=== PATIENT | female | born 1950 | race Caucasian/White ===

== ENCOUNTER 2019-01-12 19:50 | Emergency (ER) | payer MEDICARE ==
[~2019-01-12] VITALS: Ht 165.1 cm; Wt 75.0 kg
[2019-01-12] MEDS ORDERED: OMEP40CA37 PO (20:06)
[2019-01-12] MEDS ORDERED: PRED5TAB PO (20:06)
[2019-01-12] MEDS ORDERED: METO50TA7 PO (20:06)
[2019-01-12] MEDS ORDERED: LISI-600 PO (20:06)
[2019-01-12] MEDS ORDERED: ACYC-202 PO (20:06)
[2019-01-12 20:07] VITALS: BP 194/116
== END 2019-01-12 22:05 | disposition home or self-care (01) ==
LOC: ER 19:51
DX: T38.0X5A Adverse effect of glucocorticoids and synthetic analogues, initial encounter (principal); T37.5X5A Adverse effect of antiviral drugs, initial encounter; R07.89 Other chest pain; R06.02 Shortness of breath; Y92.89 Other specified places as the place of occurrence of the external cause; B02.9 Zoster without complications; I10 Essential (primary) hypertension; Z88.2 Allergy status to sulfonamides; Z88.0 Allergy status to penicillin; Z88.8 Allergy status to other drugs, medicaments and biological substances
CPT/HCPCS: 99281

== ENCOUNTER 2024-02-06 05:11 | Emergency (ER) | payer MEDICARE ==
[~2024-02-06] VITALS: Ht 165.1 cm; Wt 72.5 kg
[~2024-02-06 05:11] MED LIST: ACYC-129 PO; LISI20TA28 PO; METO50TA7 PO; OMEP40CA21 PO; PRED5TAB PO
[2024-02-06] MEDS ORDERED: LEVO-65 PO (06:27)
[2024-02-06 06:53] VITALS: BP 173/96; PULSE 75; RESP 16; TEMP 98; O2SAT 98
== END 2024-02-06 06:54 | disposition home or self-care (01) ==
LOC: ER 05:11
DX: H66.42 Suppurative otitis media, unspecified, left ear (principal); H72.92 Unspecified perforation of tympanic membrane, left ear; I10 Essential (primary) hypertension; Z88.0 Allergy status to penicillin; Z88.2 Allergy status to sulfonamides; Z88.8 Allergy status to other drugs, medicaments and biological substances
CPT/HCPCS: 99283

== ENCOUNTER 2024-08-30 14:08 | Inpatient (IN) | payer MEDICARE, OTHER ==
[~2024-08-30] VITALS: Ht 165.1 cm; Wt 79.5 kg
[2024-08-30] MEDS ORDERED: iohexol 350MG/ML 100ml bottle IV ONE (14:13)
[2024-08-30 14:40] LABS: BASOPHILS # (AUTO) 0.1 X10'3 (0-0.2); BASOPHILS % (AUTO) 0.6 % (0-1); EOSINOPHILS # (AUTO) 0.2 X10'3 (0-0.9); EOSINOPHILS % (AUTO) 1.9 % (0-6); HEMATOCRIT 41.4 % (35.0-45.0); HEMOGLOBIN 13.9 g/dl (12.0-16.0); LYMPHOCYTES # (AUTO) 2.8 X10'3 (1.1-4.8); LYMPHOCYTES % (AUTO) 24.1 % (21-51); MEAN CORPUSCULAR HEMOGLOBIN 29.2 PG (27.0-31.0); MEAN CORPUSCULAR HGB CONC 33.5 g/dL (33.0-36.5); MEAN CORPUSCULAR VOLUME 87.1 FL (78-98); MEAN PLATELET VOLUME 8.7 FL (7.4-10.4); MONOCYTES # (AUTO) 0.6 X10'3 (0-0.9); MONOCYTES % (AUTO) 5.3 % (2-12); NEUTROPHILS # (AUTO) 7.9 X10'3 (1.8-7.7); NEUTROPHILS % (AUTO) 68.1 % (42-75); PLATELET COUNT 235 X10'3 (140-440); RED BLOOD COUNT 4.76 X10'6 (4.20-5.60); RED CELL DISTRIBUTION WIDTH 14.2 % (11.5-14.5); WHITE BLOOD COUNT 11.5 X10'3 (4.5-11.0)
[2024-08-30 14:51] LABS: ANION GAP 11 (8-16); BLOOD UREA NITROGEN 26 MG/DL (7-18); BUN/CREATININE RATIO 29.5 (10.0-20.0); CALCIUM 9.2 MG/DL (8.5-10.1); CHLORIDE 106 MMOL/L (99-107); CREATININE 0.88 MG/DL (0.40-0.90); GLUCOSE 121 MG/DL (70-104); POTASSIUM 4.2 MMOL/L (3.5-5.1); SODIUM 140 MMOL/L (135-145); TOTAL CARBON DIOXIDE 22.8 MMOL/L (24-32); eCRCL 52 ML/MIN; eGFR 63 ML/MIN
[2024-08-30 14:56] LABS: APTT 28 SECONDS (22-32); PROTHROMBIN TIME 10.6 SECONDS (9.0-12.0)
[2024-08-30 15:24] LABS: URINE AMPHETAMINE SCREEN NEGATIVE (Neg); URINE BARBITUATE SCREEN NEGATIVE (Neg); URINE BENZODIAZEPINES SCREEN NEGATIVE (Neg); URINE CANNABINOID SCREEN NEGATIVE (Neg); URINE COCAINE SCREEN NEGATIVE (Neg); URINE METHADONE SCREEN NEGATIVE (Neg); URINE OPIATE SCREEN NEGATIVE (Neg); URINE PHENCYCLIDINE SCREEN NEGATIVE (Neg)
[2024-08-30 15:32] LABS: ALANINE AMINOTRANSFERASE 39 U/L (12-78); ALBUMIN/GLOBULIN RATIO 1.4 (1.1-1.5); ALKALINE PHOSPHATASE 138 IU/L (46-116); ASPARTATE AMINO TRANSFERASE 26 U/L (10-37); BILIRUBIN,DIRECT 0.1 MG/DL (0-0.3); BILIRUBIN,TOTAL 0.4 MG/DL (0.1-1.0); TOTAL PROTEIN 6.9 G/DL (6.4-8.2)
[2024-08-30 15:35] LABS: BILIRUBIN,URINE NEGATIVE (Neg); CLARITY,URINE CLEAR (Clear); COLOR,URINE YELLOW (Yellow); GLUCOSE, URINE NEGATIVE (Neg); KETONES,URINE NEGATIVE (Neg); LEUKOCYTE ESTERASE ,URINE NEGATIVE (Neg); NITRITES, URINE NEGATIVE (Neg); OCCULT BLOOD,URINE NEGATIVE (Neg); PH,URINE 5.5 (4.8-8.0); PROTEIN,URINE NEGATIVE (Neg); UROBILINOGEN,URINE 0.2 E.U/dL (0.2-1.0)
[2024-08-30 15:40] LABS: UA COLLECTION TYPE CLN CATCH MIDSTREAM
[2024-08-30] MEDS ORDERED: ondansetron/PF 4mg/2ml inj IV PRN (17:30)
[2024-08-30] MEDS ORDERED: mag hydrox/Alum hydrox/simeth 30ml oral suspension PO PRN (17:30)
[2024-08-30] MEDS ORDERED: morphine 2 MG/ML inj. syringe IV PRN ×2 (17:30)
[2024-08-30] MEDS ORDERED: magnesium Cl slow-release 64mg tablet PO PRN (17:30)
[2024-08-30] MEDS ORDERED: potassium Cl 40MEQ/1/2NS 520ml 520 ML IV PRN (17:30)
[2024-08-30] MEDS ORDERED: acetaminophen 325mg tablet PO PRN (17:30)
[2024-08-30] MEDS ORDERED: potassium Cl 20 mEq SR tablet PO PRN ×2 (17:30)
[2024-08-30] MEDS ORDERED: magnesium sulf-water 4G/100mL 100 ML IV PRN (17:30)
[2024-08-30] MEDS ORDERED: magnesium sulf-water 2g/50mL 50 ML IV PRN (17:30)
[2024-08-30] MEDS ORDERED: hydrALAZINE 20mg/ml inj. IV PRN (18:50)
[2024-08-30] MEDS: normal saline 1000ml 1,000 ML IV SCH (19:31)
[2024-08-30 19:34] LABS: CHOL/HDL RATIO 4.7 (0.00-4.99); CHOLESTEROL 232 MG/DL (0-200); HDL CHOLESTEROL 49 MG/DL (35-60); LDL CHOLESTEROL 147 MG/DL (50-100); TRIGLYCERIDES 231 MG/DL (20-135)
[2024-08-30] MEDS ORDERED: GADOTERATE MEGLUMINE 7.5 MMOL/15 ML VIAL IV ONE (19:34)
[2024-08-30 19:36] LABS: HEMOGLOBIN A1C 6.1 % (4.5-6.2)
[2024-08-30] MEDS: docusate sod 100mg capsule PO SCH (20:00)
[2024-08-30] MEDS: K and/or MAG REPLACEMENT MC SCH (20:00)
[2024-08-30] MEDS: methylPREDNISolone sod succ 125mg/2ml vial IV SCH (20:06)
[2024-08-30 20:37] LABS: OCCULT BLOOD STOOL NEGATIVE (Neg)
[2024-08-31] VITALS (8 sets, daily range): BP systolic 155–188; BP diastolic 74–94; PULSE 72–92; RESP 16–20; TEMP 97.7–98.5; O2SAT 94–97
[2024-08-31] MEDS ORDERED: CELE-193 PO (00:58)
[2024-08-31] MEDS ORDERED: FLUT9.9S BOTHNARES (02:26)
[2024-08-31 06:45] LABS: BASOPHILS % (AUTO) 0.3 % (0-1); EOSINOPHILS % (AUTO) 0 % (0-6); HEMATOCRIT 41.4 % (35.0-45.0); HEMOGLOBIN 13.9 g/dl (12.0-16.0); LYMPHOCYTES # (AUTO) 1.5 X10'3 (1.1-4.8); LYMPHOCYTES % (AUTO) 13.5 % (21-51); MEAN CORPUSCULAR HEMOGLOBIN 29.4 PG (27.0-31.0); MEAN CORPUSCULAR HGB CONC 33.7 g/dL (33.0-36.5); MEAN CORPUSCULAR VOLUME 87.4 FL (78-98); MEAN PLATELET VOLUME 8.9 FL (7.4-10.4); MONOCYTES # (AUTO) 0.2 X10'3 (0-0.9); MONOCYTES % (AUTO) 1.9 % (2-12); NEUTROPHILS # (AUTO) 9.3 X10'3 (1.8-7.7); NEUTROPHILS % (AUTO) 84.3 % (42-75); PLATELET COUNT 249 X10'3 (140-440); RED BLOOD COUNT 4.73 X10'6 (4.20-5.60); RED CELL DISTRIBUTION WIDTH 14.2 % (11.5-14.5); WHITE BLOOD COUNT 11.1 X10'3 (4.5-11.0)
[2024-08-31 07:08] LABS: ALANINE AMINOTRANSFERASE 39 U/L (12-78); ALBUMIN 3.7 G/DL (3.4-5.0); ALBUMIN/GLOBULIN RATIO 0.9 (1.1-1.5); ALKALINE PHOSPHATASE 123 IU/L (46-116); ANION GAP 7 (8-16); ASPARTATE AMINO TRANSFERASE 26 U/L (10-37); BILIRUBIN,TOTAL 0.5 MG/DL (0.1-1.0); BLOOD UREA NITROGEN 16 MG/DL (7-18); CALCIUM 8.9 MG/DL (8.5-10.1); CHLORIDE 106 MMOL/L (99-107); CREATININE 0.89 MG/DL (0.40-0.90); GLUCOSE 154 MG/DL (70-104); MAGNESIUM 1.8 MG/DL (1.5-2.4); POTASSIUM 4.2 MMOL/L (3.5-5.1); SODIUM 139 MMOL/L (135-145); TOTAL CARBON DIOXIDE 25.8 MMOL/L (24-32); TOTAL PROTEIN 7.6 G/DL (6.4-8.2); eCRCL 51 ML/MIN; eGFR 62 ML/MIN
[2024-08-31] MEDS: aspirin 81mg tab.chew PO SCH (08:07)
[2024-08-31] MEDS: celeCOXIB 100mg capsule PO SCH (10:09)
[2024-08-31] MEDS: lisinopril 20mg tablet PO SCH (10:10)
[2024-08-31] MEDS: pantoprazole 40 MG vial IV SCH (12:27)
[2024-08-31] MEDS: dexamethasone 4mg tablet PO SCH (12:27)
[2024-08-31] MEDS: metoprolol succinate 25mg (24-HOUR) SR. Tablet PO ONE (17:11)
[2024-08-31] MEDS: levetiracetam 250mg tablet PO SCH (19:49)
[2024-08-31] MEDS ORDERED: levetiracetam 250mg tablet PO SCH (20:00)
[2024-08-31] MEDS ORDERED: dexamethasone 4mg tablet PO SCH (21:00)
[2024-08-31] MEDS: acetaminophen 325mg tablet PO PRN (21:42)
[2024-09-01] VITALS (7 sets, daily range): BP systolic 138–183; BP diastolic 71–88; PULSE 63–77; RESP 18–20; TEMP 96.8–98.5; O2SAT 95–98
[2024-09-01 06:23] LABS: BASOPHILS % (AUTO) 0.2 % (0-1); EOSINOPHILS % (AUTO) 0 % (0-6); HEMATOCRIT 38.5 % (35.0-45.0); HEMOGLOBIN 12.7 g/dl (12.0-16.0); LYMPHOCYTES # (AUTO) 1.4 X10'3 (1.1-4.8); LYMPHOCYTES % (AUTO) 9.9 % (21-51); MEAN CORPUSCULAR HEMOGLOBIN 28.9 PG (27.0-31.0); MEAN CORPUSCULAR HGB CONC 33.1 g/dL (33.0-36.5); MEAN CORPUSCULAR VOLUME 87.4 FL (78-98); MEAN PLATELET VOLUME 8.7 FL (7.4-10.4); MONOCYTES # (AUTO) 0.4 X10'3 (0-0.9); MONOCYTES % (AUTO) 2.6 % (2-12); NEUTROPHILS # (AUTO) 11.9 X10'3 (1.8-7.7); NEUTROPHILS % (AUTO) 87.3 % (42-75); PLATELET COUNT 244 X10'3 (140-440); RED BLOOD COUNT 4.41 X10'6 (4.20-5.60); RED CELL DISTRIBUTION WIDTH 14.2 % (11.5-14.5); WHITE BLOOD COUNT 13.6 X10'3 (4.5-11.0)
[2024-09-01 06:40] LABS: ALANINE AMINOTRANSFERASE 32 U/L (12-78); ALBUMIN 3.2 G/DL (3.4-5.0); ALBUMIN/GLOBULIN RATIO 0.9 (1.1-1.5); ALKALINE PHOSPHATASE 99 IU/L (46-116); ANION GAP 5 (8-16); ASPARTATE AMINO TRANSFERASE 27 U/L (10-37); BILIRUBIN,TOTAL 0.4 MG/DL (0.1-1.0); BLOOD UREA NITROGEN 21 MG/DL (7-18); BUN/CREATININE RATIO 24.4 (10.0-20.0); CALCIUM 8.7 MG/DL (8.5-10.1); CHLORIDE 108 MMOL/L (99-107); CREATININE 0.86 MG/DL (0.40-0.90); GLUCOSE 160 MG/DL (70-104); MAGNESIUM 1.8 MG/DL (1.5-2.4); POTASSIUM 3.9 MMOL/L (3.5-5.1); SODIUM 139 MMOL/L (135-145); TOTAL CARBON DIOXIDE 25.6 MMOL/L (24-32); TOTAL PROTEIN 6.6 G/DL (6.4-8.2); eCRCL 53 ML/MIN; eGFR 65 ML/MIN
[2024-09-01] MEDS: fluticasone nasal spray 16GM bottle NS SCH (08:00)
[2024-09-01] MEDS: metoprolol succinate 25mg (24-HOUR) SR. Tablet PO SCH (09:20)
[2024-09-01] MEDS: pantoprazole 40mg Tablet.DR PO SCH (09:21)
[2024-09-01] MEDS ORDERED: lisinopril 20mg tablet PO SCH (14:25)
[2024-09-01] MEDS ORDERED: hydrALAZINE 20mg/ml inj. IV PRN (14:25)
[2024-09-01] MEDS: lisinopril 10 MG tablet PO ONE (15:31)
[2024-09-01] MEDS: hydrALAZINE 25 MG tablet PO SCH (17:03)
[2024-09-01] MEDS ORDERED: iohexol 350MG/ML 100ml bottle IV ONE ×2 (20:05→21:04)
[2024-09-01] MEDS: hydrALAZINE 20mg/ml inj. IV PRN (21:51)
[2024-09-02] VITALS (7 sets, daily range): BP systolic 119–166; BP diastolic 57–84; PULSE 62–75; RESP 16–20; TEMP 96.8–98.4; O2SAT 96–97
[2024-09-02 06:53] LABS: ALANINE AMINOTRANSFERASE 39 U/L (12-78); ALBUMIN 3.5 G/DL (3.4-5.0); ALKALINE PHOSPHATASE 99 IU/L (46-116); ANION GAP 10 (8-16); ASPARTATE AMINO TRANSFERASE 30 U/L (10-37); BILIRUBIN,TOTAL 0.5 MG/DL (0.1-1.0); BLOOD UREA NITROGEN 20 MG/DL (7-18); BUN/CREATININE RATIO 23.8 (10.0-20.0); CALCIUM 8.9 MG/DL (8.5-10.1); CHLORIDE 107 MMOL/L (99-107); CREATININE 0.84 MG/DL (0.40-0.90); GLUCOSE 145 MG/DL (70-104); POTASSIUM 3.7 MMOL/L (3.5-5.1); SODIUM 141 MMOL/L (135-145); TOTAL CARBON DIOXIDE 23.8 MMOL/L (24-32); TOTAL PROTEIN 6.9 G/DL (6.4-8.2); eCRCL 54 ML/MIN; eGFR 67 ML/MIN
[2024-09-02 07:07] LABS: BASOPHILS # (AUTO) 0.1 X10'3 (0-0.2); BASOPHILS % (AUTO) 0.4 % (0-1); EOSINOPHILS % (AUTO) 0 % (0-6); HEMATOCRIT 41.3 % (35.0-45.0); HEMOGLOBIN 13.6 g/dl (12.0-16.0); LYMPHOCYTES # (AUTO) 1.5 X10'3 (1.1-4.8); LYMPHOCYTES % (AUTO) 9.9 % (21-51); MEAN CORPUSCULAR HEMOGLOBIN 28.7 PG (27.0-31.0); MEAN CORPUSCULAR HGB CONC 32.9 g/dL (33.0-36.5); MEAN CORPUSCULAR VOLUME 87.3 FL (78-98); MEAN PLATELET VOLUME 9.1 FL (7.4-10.4); MONOCYTES # (AUTO) 0.4 X10'3 (0-0.9); MONOCYTES % (AUTO) 2.9 % (2-12); NEUTROPHILS # (AUTO) 13.1 X10'3 (1.8-7.7); NEUTROPHILS % (AUTO) 86.8 % (42-75); PLATELET COUNT 261 X10'3 (140-440); RED BLOOD COUNT 4.73 X10'6 (4.20-5.60); RED CELL DISTRIBUTION WIDTH 14.1 % (11.5-14.5); WHITE BLOOD COUNT 15.1 X10'3 (4.5-11.0)
[2024-09-02] MEDS: lisinopril 20mg tablet PO SCH (09:53)
[2024-09-02] MEDS: hydrOXYzine 25 MG tablet PO ONE (15:40)
[2024-09-02] MEDS: amLODIPine 5mg tablet PO SCH (15:40)
[2024-09-03 06:00] VITALS: BP 153/75; PULSE 74; RESP 16; TEMP 97.9; O2SAT 95
[2024-09-03 06:02] LABS: BASOPHILS % (AUTO) 0.4 % (0-1); EOSINOPHILS % (AUTO) 0.1 % (0-6); HEMATOCRIT 38.2 % (35.0-45.0); HEMOGLOBIN 12.6 g/dl (12.0-16.0); LYMPHOCYTES # (AUTO) 1.5 X10'3 (1.1-4.8); LYMPHOCYTES % (AUTO) 12.6 % (21-51); MEAN CORPUSCULAR HEMOGLOBIN 28.7 PG (27.0-31.0); MEAN CORPUSCULAR HGB CONC 32.9 g/dL (33.0-36.5); MEAN CORPUSCULAR VOLUME 87.1 FL (78-98); MEAN PLATELET VOLUME 9.3 FL (7.4-10.4); MONOCYTES # (AUTO) 0.3 X10'3 (0-0.9); MONOCYTES % (AUTO) 2.9 % (2-12); NEUTROPHILS # (AUTO) 9.7 X10'3 (1.8-7.7); PLATELET COUNT 246 X10'3 (140-440); RED BLOOD COUNT 4.38 X10'6 (4.20-5.60); RED CELL DISTRIBUTION WIDTH 14.1 % (11.5-14.5); WHITE BLOOD COUNT 11.6 X10'3 (4.5-11.0)
[2024-09-03 06:49] LABS: ALANINE AMINOTRANSFERASE 37 U/L (12-78); ALKALINE PHOSPHATASE 89 IU/L (46-116); ANION GAP 10 (8-16); ASPARTATE AMINO TRANSFERASE 22 U/L (10-37); BILIRUBIN,TOTAL 0.5 MG/DL (0.1-1.0); BLOOD UREA NITROGEN 27 MG/DL (7-18); BUN/CREATININE RATIO 31.4 (10.0-20.0); CALCIUM 8.5 MG/DL (8.5-10.1); CHLORIDE 109 MMOL/L (99-107); CREATININE 0.86 MG/DL (0.40-0.90); GLUCOSE 154 MG/DL (70-104); MAGNESIUM 2.1 MG/DL (1.5-2.4); POTASSIUM 3.9 MMOL/L (3.5-5.1); SODIUM 141 MMOL/L (135-145); TOTAL CARBON DIOXIDE 22.1 MMOL/L (24-32); TOTAL PROTEIN 6.1 G/DL (6.4-8.2); eCRCL 53 ML/MIN; eGFR 65 ML/MIN
[2024-09-03 09:20] VITALS: RESP 18; O2SAT 94
[2024-09-03] MEDS: LORazepam 0.5 MG tablet PO PRN (09:21)
[2024-09-03 15:40] VITALS: BP 148/75; PULSE 74; RESP 14; TEMP 97.9; O2SAT 96
[2024-09-03 18:00] VITALS: BP 157/70; PULSE 65; RESP 16; TEMP 97.6; O2SAT 95
[2024-09-03 20:00] VITALS: RESP 15; O2SAT 95
[2024-09-03 22:00] VITALS: BP 168/81; PULSE 67; RESP 16; TEMP 98.6; O2SAT 96
[2024-09-04] VITALS (10 sets, daily range): BP systolic 132–157; BP diastolic 69–80; PULSE 65–78; RESP 12–16; TEMP 97.4–98; O2SAT 93–97
[2024-09-04 05:48] LABS: BASOPHILS % (AUTO) 0.3 % (0-1); EOSINOPHILS % (AUTO) 0 % (0-6); HEMATOCRIT 39.6 % (35.0-45.0); HEMOGLOBIN 13.1 g/dl (12.0-16.0); LYMPHOCYTES # (AUTO) 1.7 X10'3 (1.1-4.8); LYMPHOCYTES % (AUTO) 13.8 % (21-51); MEAN CORPUSCULAR HEMOGLOBIN 28.7 PG (27.0-31.0); MEAN CORPUSCULAR HGB CONC 33.1 g/dL (33.0-36.5); MEAN CORPUSCULAR VOLUME 86.6 FL (78-98); MEAN PLATELET VOLUME 8.8 FL (7.4-10.4); MONOCYTES # (AUTO) 0.5 X10'3 (0-0.9); MONOCYTES % (AUTO) 4.3 % (2-12); NEUTROPHILS # (AUTO) 10.3 X10'3 (1.8-7.7); NEUTROPHILS % (AUTO) 81.6 % (42-75); PLATELET COUNT 267 X10'3 (140-440); RED BLOOD COUNT 4.57 X10'6 (4.20-5.60); RED CELL DISTRIBUTION WIDTH 14.3 % (11.5-14.5); WHITE BLOOD COUNT 12.6 X10'3 (4.5-11.0)
[2024-09-04 06:02] LABS: ALANINE AMINOTRANSFERASE 41 U/L (12-78); ALBUMIN 3.2 G/DL (3.4-5.0); ALKALINE PHOSPHATASE 90 IU/L (46-116); ANION GAP 9 (8-16); ASPARTATE AMINO TRANSFERASE 25 U/L (10-37); BILIRUBIN,TOTAL 0.5 MG/DL (0.1-1.0); BLOOD UREA NITROGEN 25 MG/DL (7-18); CALCIUM 8.6 MG/DL (8.5-10.1); CHLORIDE 105 MMOL/L (99-107); GLUCOSE 159 MG/DL (70-104); POTASSIUM 3.8 MMOL/L (3.5-5.1); SODIUM 139 MMOL/L (135-145); TOTAL CARBON DIOXIDE 24.7 MMOL/L (24-32); TOTAL PROTEIN 6.4 G/DL (6.4-8.2); eCRCL 46 ML/MIN; eGFR 55 ML/MIN
[2024-09-04 09:30] LABS: PLATELET ESTIMATE NORMAL; TOTAL CELLS COUNTED 100
[2024-09-04 09:31] LABS: BURR CELLS FEW; TEAR DROP CELLS FEW
[2024-09-04] MEDS: magnesium hydroxide 30ml (MOM) UD suspension PO PRN (20:54)
[2024-09-05 06:00] VITALS: BP 167/78; PULSE 70; RESP 16; TEMP 97.8; O2SAT 97
[2024-09-05] MEDS: lactose-reduced food (Ensure Enlive) - 237ml bottle PO SCH (07:30)
[2024-09-05 07:45] VITALS: RESP 16; O2SAT 97
[2024-09-05 10:27] VITALS: BP 160/79; PULSE 68; RESP 16; TEMP 98.4; O2SAT 94
[2024-09-05] MEDS: dexamethasone 4mg tablet PO ONE (12:30)
[2024-09-05] MEDS: dexamethasone 1mg tablet PO ONE (12:46)
[2024-09-07 15:20] LABS: RENIN, PLASMA 0.722 ng/mL/hr (.)
[2024-09-10 05:40] LABS: ALDOSTERONE <1.0 ng/dL (.)
== END 2024-09-05 14:46 | disposition short-term general hospital (02) | DRG 54 ==
LOC: ER 14:09 → ED HOLD 17:28 → ORTHO 4S 08-31 00:31
PROVIDERS: ADMIT Family Medicine; ATTEND Family Medicine
PROC: B3251ZZ Computerized Tomography (CT Scan) of Bilateral Common Carotid Arteries using Low Osmolar Contrast (ICD-10-PCS; principal; 2024-08-30)
PROC: B32G1ZZ Computerized Tomography (CT Scan) of Bilateral Vertebral Arteries using Low Osmolar Contrast (ICD-10-PCS; 2024-08-30)
PROC: B32R1ZZ Computerized Tomography (CT Scan) of Intracranial Arteries using Low Osmolar Contrast (ICD-10-PCS; 2024-08-30)
PROC: B3281ZZ Computerized Tomography (CT Scan) of Bilateral Internal Carotid Arteries using Low Osmolar Contrast (ICD-10-PCS; 2024-08-30)
PROC: B32T1ZZ Computerized Tomography (CT Scan) of Left Pulmonary Artery using Low Osmolar Contrast (ICD-10-PCS; 2024-09-01)
PROC: B3201ZZ Computerized Tomography (CT Scan) of Thoracic Aorta using Low Osmolar Contrast (ICD-10-PCS; 2024-09-01)
PROC: B32S1ZZ Computerized Tomography (CT Scan) of Right Pulmonary Artery using Low Osmolar Contrast (ICD-10-PCS; 2024-09-01)
DX: D32.0 Benign neoplasm of cerebral meninges (principal); G93.5 Compression of brain; I71.21 Aneurysm of the ascending aorta, without rupture; Z66 Do not resuscitate; K64.4 Residual hemorrhoidal skin tags; Z60.2 Problems related to living alone; I10 Essential (primary) hypertension; Z88.0 Allergy status to penicillin; Z88.2 Allergy status to sulfonamides; Z87.891 Personal history of nicotine dependence; Z88.8 Allergy status to other drugs, medicaments and biological substances
CPT/HCPCS: 36415; 70450; 70496; 70498; 70552; 71045; 71275; 80048; 80053; 80061; 80076; 80305; 81003; 82088; 82272; 83036; 83735; 84244; 85007; 85025; 85610; 85730; 86885; 86900; 86901; 87081; 93005; 93306; 97161; 97530; 99291; A9575; G0378; J0360; J2470; J2919; J7030; J8540; Q0177; Q9967